=== PATIENT | female | born 2005 | race Caucasian/White ===

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

== ENCOUNTER 2023-02-01 21:30 | Outpatient (CLI) | payer OTHER, MEDICAID, SELFPAY ==
[2023-02-01 21:36] VITALS: BMI 22.1
[2023-02-01 21:46] VITALS: TEMP 36.7
[2023-02-01 21:47] VITALS: TEMP 36.7
[2023-02-01 21:48] VITALS: BP 106/57; PULSE 113
[2023-02-01] MEDS: ondansetron 2 mg/ML SDV 2 mL 4 MG IVP (22:05)
[2023-02-01] MEDS: lactated ringers 1,000 ML 999 ML IV (22:05)
[2023-02-01 22:11] VITALS: RESP 15
[2023-02-01 22:17] LABS: Basophils % 0.2 %; Eosinophils % 0.1 %; Hematocrit 40.1 % (37.0-47.0); Hemoglobin 13.3 g/dL (11.5-15.3); Lymphocytes # 0.4 10^3/uL (1.5-6.5); Mean Corpuscular HGB Conc 33.2 g/dL (30.0-36.0); Mean Corpuscular Hemoglobin 31.8 pg (28.0-34.0); Mean Corpuscular Volume 95.9 fl (81-99); Monocytes # 1.3 10^3/uL (0.2-0.9); Monocytes % 8.9 %; Neutrophils # 12.31 10^3/uL (1.8-8.0); Neutrophils % 86.5 %; Nucleated Red Blood Cells % 0 %; Platelet Count 231 10^3/cmm (130-400); Red Blood Count 4.18 10^6/uL (4.1-5.3); Red Cell Distribution Width 13.6 % (12.1-15.1); White Blood Count 14.2 10^3/uL (4.5-13.0)
[2023-02-01 22:25] LABS: Bilirubin Urine Neg (Negative); Blood Urine Neg (Negative); Glucose Urine UA Norm (Normal); Ketones Urine 2+ (Negative); Leukocyte Esterase Urine Negative (Negative); Nitrate Urine Negative (Negative); Protein Urine Neg (Negative); RBC Urine 0-4 /hpf (0-2); Specific Gravity, Urine 1.025 (1.005-1.030); Urine Appearance Clear (CLEAR); Urine Color Yellow (Yellow); Urobilinogen Urine Norm (Negative); pH Urine 5 (5-7)
[2023-02-01 22:26] LABS: Add Urine Culture? No; Bacteria Urine 4+ /hpf; Mucus Urine 4+ /hpf; Squamous Epithelial Cell Urine 15-25 /hpf (0-5); WBC Urine 40-55 /hpf (0-5)
[2023-02-01 22:59] VITALS: BP 101/59; PULSE 85
== END 2023-02-01 23:05 | disposition home or self-care (01) ==
LOC: OPOB 21:32 → OBGYN 21:33
PROVIDERS: Visit Provider Obstetrics & Gynecology
DX: O21.9 Vomiting of pregnancy, unspecified (principal); Z3A.00 Weeks of gestation of pregnancy not specified; R50.9 Fever, unspecified
CPT/HCPCS: 36415; 81001; 85025; 96374; 99211; J2405; J7120

== ENCOUNTER 2023-02-04 15:00 | Outpatient (CLI) | payer OTHER, MEDICAID, SELFPAY ==
[2023-02-04 15:45] VITALS: BMI 22.4
[2023-02-04 15:56] VITALS: BP 111/66; PULSE 76
[2023-02-04 16:10] VITALS: BP 110/62; PULSE 82
[2023-02-04 16:31] VITALS: BP 107/61; PULSE 82; RESP 17
[2023-02-04] MEDS: lactated ringers 1,000 ML 999 ML IV (16:36)
[2023-02-04] MEDS: ondansetron 4 MG Tablet PO (16:36)
[2023-02-04 16:51] VITALS: BP 117/62; PULSE 77
[2023-02-04 17:11] VITALS: BP 121/64; PULSE 74
[2023-02-04 17:31] VITALS: BP 122/60; PULSE 76
== END 2023-02-04 17:52 | disposition home or self-care (01) ==
LOC: OPOB 15:01 → OBGYN 15:01
PROVIDERS: Visit Provider Obstetrics & Gynecology
DX: O26.899 Other specified pregnancy related conditions, unspecified trimester (principal); Z3A.00 Weeks of gestation of pregnancy not specified; R11.0 Nausea; R19.7 Diarrhea, unspecified
CPT/HCPCS: 36415; 96374; 99211; J7120; Q0162

== ENCOUNTER → 2023-02-21 14:37 | Outpatient (BNVA) | payer OTHER, MEDICAID, SELFPAY | PROVIDERS: Visit Provider Obstetrics & Gynecology | DX: Z34.00 Encounter for supervision of normal first pregnancy, unspecified trimester (principal) | CPT/HCPCS: 82950; 84315; 85025; 87086 ==

== ENCOUNTER 2023-03-21 14:50 | Outpatient (CLI) | payer OTHER, MEDICAID, SELFPAY ==
[2023-03-21 15:00] VITALS: BMI 22.8
[2023-03-21 15:02] VITALS: BP 109/59; PULSE 68
--- NOTE | 2023-03-21 15:03 | US_ITS ---
WS: [id number] ULTRASOUND OB LIMITED TECHNIQUE: Limited ultrasound examination of the fetus. CLINICAL INFORMATION: 2 VESSEL CORD COMPARISON: December 27, 2022 FINDINGS: Single interuterine gestation. presentation is vertex Placental location is anterior. Placenta grade: 2 heart rate 150 BPM. HANNA 18.2 cm Anatomy: BDP: 8.6 cm = 34w6d 94th percentile HC: 31.4 cm = 35w2d 81 percentile AC: 25.7 cm = 29w6d 2nd percentile FEMUR LENGTH: 5.8 cm = 30w2d 2nd percentile Estimated weight: 1653 g; 3 lbs. 10 oz. EGA by ultrasound: 32w4d JOSE by ultrasound: 05/12/2023 Biophysical profile 8 out of 8. breathin movement: 2 tone: 2 Amniotic fluid: 2 US/US OB BPP wo NST 82138 IMPRESSION: 1. Biophysical profile 8 out of 8. 2. Abdominal circumference at the 2nd percentile for gestational age suspiciou s for growth restriction. Recommend follow-up UA Doppler to assess for pl acental insufficiency 3. Estimated weight: 1653 g; 3 lbs. 10 oz. (28th percentile)
[2023-03-21 15:22] VITALS: BP 101/59; PULSE 81
[2023-03-21 15:42] VITALS: BP 101/55; PULSE 73
[2023-03-21 16:40] VITALS: BP 101/55; PULSE 73
== END 2023-03-21 16:40 | disposition home or self-care (01) ==
LOC: OPOB 14:54 → OBGYN 14:59
PROVIDERS: Visit Provider Obstetrics & Gynecology
DX: Z36.4 Encounter for antenatal screening for fetal growth retardation (principal)
CPT/HCPCS: 59025; 76819; 84315; 87086; 99211

== ENCOUNTER 2023-03-28 13:45 | Outpatient (CLI) | payer OTHER, MEDICAID, SELFPAY ==
[2023-03-28 13:50] VITALS: BMI 23.1
[2023-03-28 13:56] VITALS: BP 109/66; PULSE 86
--- NOTE | 2023-03-28 13:58 | US_ITS ---
WS: [id number] BIOPHYSICAL PROFILE AND LIMITED OB. HISTORY: 2 VESSEL CORD, GROWTH MEASUREMENTS AND HANNA COMPARISON: 10/14/2022 Presentation: Cephalic. Cervix: Closed and normal length. Placenta: Anterior, no previa or abruption. Grade: 1 HEART: FHR of 133BPM. measurements: BPD = 8.4 cm = 33w4d; 46th percentile HC = 30.3 cm = 33w4d; 17th percentile AC = 29.5 cm = 33w3d; 49th percentile FL = 6.5 cm = 33w4d; 41st percentile HANNA: 8.8 centimeters; single deep vertical pocket 2.7 cm. EFW: 2218g; 57th percentile AGA by ultrasound: 33w4d JOSE by ultrasound: 05/12/2023 Measurements are internally concordant. head measurements are appropriate on today's study. Biophysical profile: Parameters are as follows: Breathin Movement: 2 Tone: 2 Fluid volume: 2 US/US OB lmt w/ BPP wo NST IMPRESSION: 1. Biophysical profile score: 8/8. 2. Single intrauterine gestation of 33w4d with an 05/12/2023. Appropriate growt h since the first trimester ultrasound. 3. No growth asymmetry or growth restriction noted on today's study.
[2023-03-28 14:16] VITALS: BP 115/73; PULSE 89
[2023-03-28 15:10] VITALS: BP 115/73; PULSE 89
== END 2023-03-28 15:10 | disposition home or self-care (01) ==
LOC: OPOB 13:52 → OBGYN 13:53
PROVIDERS: Absent Provider Obstetrics & Gynecology; Family Provider Obstetrics & Gynecology; Visit Provider Obstetrics & Gynecology
DX: Z36.89 Encounter for other specified antenatal screening (principal); Z36.4 Encounter for antenatal screening for fetal growth retardation; Z3A.34 34 weeks gestation of pregnancy
CPT/HCPCS: 59025; 76815; 76819; 99211

== ENCOUNTER 2023-04-04 15:25 | Outpatient (CLI) | payer OTHER, MEDICAID, SELFPAY ==
[2023-04-04 15:25] VITALS: BMI 23.8
[2023-04-04 15:29] VITALS: RESP 18
--- NOTE | 2023-04-04 15:29 | USR_ITS ---
PROCEDURE INFORMATION: Exam: US Biophysical Profile Without Non-Stress Test Exam date and time: 04/04/2023 4:20 PM Age: 18 years old Clinical indication: Other: 2v cord; ; Additional info: 2 vessel cord, growth scan, hanna TECHNIQUE: Imaging protocol: US biophysical profile without non-stress testing. COMPARISON: US OB lmt w/ BPP wo NST 03/28/2023 2:55 PM FINDINGS: heart rate: 129 bpm Amniotic fluid index: HANNA is 14.7 cm. BIOPHYSICAL PROFILE: breathing movement (BPP): 2 out of 2. body movement (BPP): 2 out of 2. tone (BPP): 2 out of 2. Amniotic fluid (BPP): 2 out of 2. US/US OB BPP wo NST [id number] IMPRESSION: Biophysical profile score is normal at 8/8.
[2023-04-04 15:32] VITALS: BP 115/61; PULSE 75
[2023-04-04 15:47] VITALS: BP 109/59; PULSE 77
[2023-04-04 16:02] VITALS: BP 111/60; PULSE 80
[2023-04-04 16:17] VITALS: BP 110/66; PULSE 86
[2023-04-04 16:32] VITALS: BP 106/61; PULSE 76
== END 2023-04-04 16:45 | disposition home or self-care (01) ==
LOC: OPOB 15:27 → OBGYN 15:28
PROVIDERS: Family Provider Obstetrics & Gynecology; Visit Provider Obstetrics & Gynecology
DX: Z36.9 Encounter for antenatal screening, unspecified (principal)
CPT/HCPCS: 36415; 59025; 76819; 85025

== ENCOUNTER 2023-04-14 11:10 | Outpatient (CLI) | payer OTHER, MEDICAID, SELFPAY ==
[2023-04-14 11:27] VITALS: RESP 16
--- NOTE | 2023-04-14 11:27 | US_ITS ---
WS: [id number] BIOPHYSICAL PROFILE AND LIMITED OB. HISTORY: 2 vessel cord, growth. COMPARISON: 04/04/2023, 10/14/2022, Presentation: Vertex. Cervix: Obscured by the head. Placenta: Anterior, no previa or abruption. Grade: 1 HEART: FHR of 150BPM. measurements: BPD = 9.0 cm = 36w3d; 73rd percentile HC = 32.6 cm = 36w6d; 41st percentile AC = 31.7 cm = 35w4d; 48th percentile FL = 6.8 cm = 35w1d; 23rd percentile EFW: 2746g; 59th percentile AGA by ultrasound: 36w0d JOSE by ultrasound: 05/12/2023 Biophysical profile: Parameters are as follows: Breathin Movement: 2 Tone: 2 Fluid volume: 2 Single vertical pocket of amniotic fluid 4.0 cm. US/US OB BPP wo NST [id number] IMPRESSION: 1. Biophysical profile score: 8/8. 2. Single intrauterine gestation of 36w0d with an EDC of 05/12/2023. Appropriate growth since the prior ultrasound of 04/14/2022.
[2023-04-14 11:28] VITALS: BMI 24.0
[2023-04-14 11:29] VITALS: BP 112/63; PULSE 85
[2023-04-14 11:49] VITALS: BP 113/70; PULSE 96
[2023-04-14 12:09] VITALS: BP 100/60; PULSE 91
[2023-04-14 12:29] VITALS: BP 103/61; PULSE 86
[2023-04-14 12:40] VITALS: BP 103/61; PULSE 86
== END 2023-04-14 12:40 | disposition home or self-care (01) ==
LOC: OPOB 11:15 → OBGYN 11:16
PROVIDERS: Family Provider Obstetrics & Gynecology; Visit Provider Obstetrics & Gynecology
DX: Z34.93 Encounter for supervision of normal pregnancy, unspecified, third trimester (principal); Z3A.36 36 weeks gestation of pregnancy
CPT/HCPCS: 59025; 76819; 99211

== ENCOUNTER 2023-04-18 13:39 | Outpatient (CLI) | payer OTHER, MEDICAID, SELFPAY ==
--- NOTE | 2023-04-18 13:49 | US_ITS ---
WS: [id number] BIOPHYSICAL PROFILE AND LIMITED OB. HISTORY: 2 vessel cord COMPARISON: 10/14/2022, 04/14/2023 Presentation: Vertex. Cervix: Obscured by the head. Placenta: Anterior, no previa or abruption. Grade: 2 HEART: FHR of 126BPM. measurements: BPD = 9.4 cm = 38w3d; 95th percentile HC = 33.4 cm = 38w1d; 60th percentile AC = 31.8 cm = 35w5d; 37th percentile FL = 6.9 cm = 35w3d; 28th percentile HANNA: 12.3 cm. EFW: 2870g; 58th percentile AGA by ultrasound: 37w0d JOSE by ultrasound: 05/09/2023 Measurements are internally concordant. Biophysical profile: Parameters are as follows: Breathin Movement: 2 Tone: 2 Fluid volume: 2 US/US OB lmt w/ BPP wo NST IMPRESSION: 1. Biophysical profile score: 8/8. 2. Single intrauterine gestation of 37w0d with an JOSE 05/09/2023. Appropriate g rowth since the first trimester ultrasound. No growth restriction.
[2023-04-18 14:09] VITALS: BP 109/68; PULSE 86
== END 2023-04-18 15:11 | disposition home or self-care (01) ==
LOC: OPOB 13:45 → OBGYN 14:07
PROVIDERS: Family Provider Obstetrics & Gynecology
DX: Z36.4 Encounter for antenatal screening for fetal growth retardation (principal); Z3A.37 37 weeks gestation of pregnancy
CPT/HCPCS: 59025; 76815; 76819; 84315; 87081

== ENCOUNTER → 2023-04-24 13:20 | Outpatient (BNVA) | payer OTHER, MEDICAID, SELFPAY | PROVIDERS: Family Provider Obstetrics & Gynecology; Visit Provider Obstetrics & Gynecology | DX: Z34.90 Encounter for supervision of normal pregnancy, unspecified, unspecified trimester (principal) | CPT/HCPCS: 84315; 87086 ==

== ENCOUNTER 2023-04-25 13:25 | Outpatient (CLI) | payer OTHER, MEDICAID, SELFPAY ==
[2023-04-25 13:25] VITALS: BMI 24.0
[2023-04-25 13:33] VITALS: RESP 18
--- NOTE | 2023-04-25 13:33 | US_ITS ---
WS: [id number] BIOPHYSICAL PROFILE AMNIOTIC FLUID HISTORY: 2 vessel cord COMPARISON: 04/24/2023, 04/18/2023 position: Vertex. Cardiac activity: 133 bpm. Cervix: Obscured by the head. Placenta: Anterior, no previa or abruption. Placenta grade: 2 stomach is becoming distended with fluid. This may be due to the late gestational age. This can be followed up to ascertain normal emptying of the stomach. No small bowel obstruction is evident. measurements: BPD = 9.4 cm = 38w3d; 87th percentile HC = 33.7 cm = 38w4d; 53rd percentile AC = 31.4 cm = 35w2d; 10th percentile FL = 7.4 cm = 37w5d; 55th percentile HANNA: 10.8 centimeters EFW: 2993g; 53rd percentile AGA by ultrasound: 37w4d JOSE by ultrasound: 05/12/2023 Biophysical profile: Parameters are as follows: Breathin Movement: 2 Tone: 2 Fluid volume: 2 US/US OB BPP wo NST [id number] IMPRESSION: 1. Biophysical profile score: 8/8. 2. Single intrauterine gestation of 37w4d with and EDC of 05/12/2023. Appropria te growth since the prior ultrasound. 3. No growth restriction. 4. Grade 2 placenta.
[2023-04-25 14:44] VITALS: BP 117/73; PULSE 90
[2023-04-25 14:45] VITALS: BP 117/73; PULSE 90
== END 2023-04-25 14:45 | disposition home or self-care (01) ==
LOC: OPOB 13:28 → OBGYN 13:30
PROVIDERS: Family Provider Obstetrics & Gynecology; Visit Provider Obstetrics & Gynecology
DX: O09.899 Supervision of other high risk pregnancies, unspecified trimester (principal); Q27.0 Congenital absence and hypoplasia of umbilical artery; Z3A.37 37 weeks gestation of pregnancy
CPT/HCPCS: 59025; 76819; 99211

== ENCOUNTER 2023-05-02 13:07 | Outpatient (CLI) | payer OTHER, MEDICAID, SELFPAY ==
[2023-05-02 13:19] VITALS: BP 112/67; PULSE 82
[2023-05-02 13:22] VITALS: RESP 17; TEMP 36.8
[2023-05-02 13:23] VITALS: BMI 24.3
[2023-05-02 13:34] VITALS: BP 114/69; PULSE 83
== END 2023-05-02 14:25 | disposition home or self-care (01) ==
LOC: OPOB 13:10 → OBGYN 13:11
PROVIDERS: Family Provider Obstetrics & Gynecology; Visit Provider Obstetrics & Gynecology
DX: Z36.89 Encounter for other specified antenatal screening (principal)
CPT/HCPCS: 59025; 84315; 99211

== ENCOUNTER 2023-05-02 15:04 | Outpatient (CLI) | payer OTHER, MEDICAID, SELFPAY ==
--- NOTE | 2023-05-02 15:13 | US_ITS ---
WS: [id number] BIOPHYSICAL PROFILE AND LIMITED OB. HISTORY: with GROWTH SCAN, 2 vessel cord COMPARISON: 12/27/2021, 04/25/2023 Presentation: Vertex. Cervix: Obscured by the head. No cervical insufficiency is appreciated. Placenta: Anterior, no previa or abruption. Grade: 2 HEART: FHR of 150BPM. measurements: BPD = 9.2 cm = 37w2d; 45th percentile HC = 33.1 cm = 37w5d; 17th percentile AC = 33.6 cm = 37w4d; 40th percentile FL = 7.5 cm = 38w3d; 51st percentile Visually low normal amniotic fluid. EFW: 3292g; 67th percentile AGA by ultrasound: 37w5d JOSE by ultrasound: 05/18/2023 Biophysical profile: Parameters are as follows: Breathin Movement: 2 Tone: 2 Fluid volume: 2 Single vertical pocket of amniotic fluid 3.4 cm. US/US OB BPP wo NST [id number] IMPRESSION: 1. Biophysical profile score: 8/8. 2. Single intrauterine gestation of 37w5d with an 05/18/2023. Appropriate growt h since the first trimester ultrasound. Also appropriate growth since the most recent examination. 3. Anterior placenta, grade 2. 4. Single vertical pocket of amniotic fluid is 3.4 cm. 5. No growth asymmetry or restriction.
[2023-05-02 15:15] VITALS: BMI 24.3
== END 2023-05-02 17:40 | disposition home or self-care (01) ==
LOC: OPOB 15:05 → OBGYN 15:06
PROVIDERS: Family Provider Obstetrics & Gynecology; Visit Provider Obstetrics & Gynecology
DX: Z36.4 Encounter for antenatal screening for fetal growth retardation (principal); Z3A.37 37 weeks gestation of pregnancy
CPT/HCPCS: 76819; 99211

== ENCOUNTER 2023-05-09 14:55 | Outpatient (CLI) | payer OTHER, MEDICAID, SELFPAY ==
--- NOTE | 2023-05-09 | USR_ITS ---
PROCEDURE INFORMATION: Exam: US Biophysical Profile Without Non-Stress Test Exam date and time: 05/09/2023 4:34 PM Age: 18 years old Clinical indication: Screening exam; Encounter for screening of mother; Second trimester (14 weeks 0 days to 27 weeks 6 days); Additional info: 2 vessel cord TECHNIQUE: Imaging protocol: US biophysical profile without non-stress testing. COMPARISON: US OB BPP wo NST [id number] 05/02/2023 5:07 PM FINDINGS: Gestation: There is a single viable intrauterine gestation. Estimated gestational age 37 weeks 6 days heart rate: 129 bpm. heart rate 129 bpm Amniotic fluid index: HANNA is 9.7 cm. HANNA 9.7 cm. BIOPHYSICAL PROFILE: breathing movement (BPP): 2 out of 2. body movement (BPP): 2 out of 2. tone (BPP): 2 out of 2. Amniotic fluid (BPP): 2 out of 2. BIOMETRY: Estimated weight: Estimated weight 3590 g, 71st percentile Umbilical cord insertion site into the abdomen: 2 vessel cord. Other findings: position is vertex. BPD 38 weeks 3 days, 59 percentile; HC 37 weeks 6 days, 11th percentile; AC 39 weeks 5 days, 78 percentile; FL 37 weeks 0 day. US/US OB BPP wo NST [id number] IMPRESSION: Single viable intrauterine gestation at 37 weeks 6 days.
[2023-05-09 14:55] VITALS: BMI 24.7
[2023-05-09 15:30] VITALS: BP 114/72; PULSE 82
[2023-05-09 15:50] VITALS: BP 113/72; PULSE 82
== END 2023-05-09 17:07 | disposition home or self-care (01) ==
LOC: OPOB 15:00 → OBGYN 15:09
PROVIDERS: Family Provider Obstetrics & Gynecology; Visit Provider Obstetrics & Gynecology
DX: Z36.4 Encounter for antenatal screening for fetal growth retardation (principal)
CPT/HCPCS: 59025; 76815; 76819; 84315; 87086

== ENCOUNTER → 2023-05-12 14:05 | Outpatient (BNVA) | payer OTHER, MEDICAID, SELFPAY | PROVIDERS: Family Provider Obstetrics & Gynecology; Visit Provider Obstetrics & Gynecology | DX: Z34.00 Encounter for supervision of normal first pregnancy, unspecified trimester (principal) | CPT/HCPCS: 81000 ==

== ENCOUNTER 2023-05-15 12:01 | Inpatient (IN) | payer OTHER, MEDICAID, SELFPAY ==
[2023-05-15] VITALS (21 sets, daily range): BP systolic 105–124; BP diastolic 63–82; PULSE 74–100; RESP 16; TEMP 36.1–36.2; BMI 25.2
[2023-05-15 12:56] LABS: Basophils % 0.1 %; Eosinophils # 0.1 10^3/uL (0.0-0.8); Eosinophils % 0.6 %; Hematocrit 36.6 % (37.0-47.0); Hemoglobin 12.5 g/dL (11.5-15.3); Lymphocytes # 1.5 10^3/uL (1.5-6.5); Lymphocytes % 14.2 %; Mean Corpuscular HGB Conc 34.2 g/dL (30.0-36.0); Mean Corpuscular Hemoglobin 32.5 pg (28.0-34.0); Mean Corpuscular Volume 95.1 fl (81-99); Mean Platelet Volume 9.6 fL (7.4-10.4); Monocytes # 1.3 10^3/uL (0.2-0.9); Monocytes % 11.8 %; Neutrophils # 7.82 10^3/uL (1.8-8.0); Neutrophils % 72.5 %; Nucleated Red Blood Cells % 0 %; Platelet Count 199 10^3/cmm (130-400); Red Blood Count 3.85 10^6/uL (4.1-5.3); Red Cell Distribution Width 13.7 % (12.1-15.1); White Blood Count 10.8 10^3/uL (4.5-13.0)
[2023-05-15] MEDS: miSOPROStol 100 mcg tablet 25 MCG VAGINAL ×3 (13:19→21:56)
--- NOTE | 2023-05-15 16:36 | PM.OPHPUD ---
Labor & Delivery H&P Update Date of Procedure: May 15, 2023 Date H&P Performed: 05/12/23 H&P update information: I have reviewed H&P completed within last 30 days, I have examined patient prior to procedure and No changes to prior documentation Admission Diagnosis: Related Problem List Diagnoses (1) Two vessel cord: (2) Maternal varicella, non-immune: (3) Supervision of normal first :
[2023-05-16] VITALS (155 sets, daily range): BP systolic 86–128; BP diastolic 45–104; PULSE 64–108; RESP 15–16; TEMP 36.1–36.2; O2SAT 93–100
[2023-05-16] MEDS: lactated ringers 1,000 ML 999 ML IV ×3 (02:14→07:19)
[2023-05-16] MEDS: fentaNYL 50 mcg/mL INJ 2mL IVP ×2 (04:26→05:28)
[2023-05-16] MEDS: ondansetron 2 mg/ML SDV 2 mL 4 MG IVP (05:27)
--- NOTE | 2023-05-16 05:46 | ANES.PREANE2 ---
Pre-Anesthetic Assessment Height/Weight: Height 1.83 m Weight 84.368 kg Temp Pulse Resp BP O2 Del Method 97.2 F L 93 16 112/84 Room Air 05/16/23 01:09 05/16/23 05:03 05/16/23 04:26 05/16/23 05:03 05/16/23 03:17 Preop Diagnosis: labor pain epidural Familial anesthetic complications: none Was Beta Henrietta taken within 24 hours: N/A Was Clonidine taken within 24 hours: N/A Social No alcohol and No tobacco Exam alert, oriented x 3, clear to auscultation bilaterally and regular rate & rhythm Airway Submandibular: within normal limits Cervical ROM: within normal limits Mallampati: Class II Dentition: full Pulmonary None reported CV/HEM None reported None reported Hepatic None reported GI Gastroesophageal Reflux Disease Metabolic None reported Musc/skel None reported Neuropsych None reported Anesthetic Plan ASA status: 2 Anesthesia: Regional (specify below) Risk of > 500 ml blood loss (7ml/kg in children): No Medications/Allergies Home Medications Medication Instructions Recorded Confirmed Last Taken Type prenat.vits,ana,pdp-lbee-fzafd 1 tab PO DAILY 10/11/22 05/12/23 04/17/23 00:00 History breast pump #1 ea 05/09/23 05/12/23 Unknown Rx Allergies Allergy/AdvReac Type Severity Reaction Status Date / Time No Known Allergies Allergy Verified 05/12/23 14:00 Current Medications Generic Name Dose Route Start Last Admin Trade Name Freq PRN Reason Stop Dose Admin Fentanyl 25 - 100 mcg 05/15/23 12:46 05/16/23 05:28 Fentanyl 50 Mcg/Ml Inj 2ml IVP 50 mcg Q1H PRN Administration SEVERE PAIN Lactated Ringer's 1,000 mls @ 999 mls/hr 05/15/23 12:44 05/16/23 02:14 Lactated Ringers IV 999 mls/hr .Q1H1M PRN Administration Per L&D Rescitation Protocol Ondansetron HCl 4 mg 05/15/23 12:44 05/16/23 05:27 Ondansetron 2 Mg/Ml Sdv 2 Ml IVP 4 mg Q4H PRN Administration NAUSEA AND VOMITING PFSH Anesthesia Medical History No pertinent past medical history neghx: htn,dm,thyroid,dtv/pe PCP: None Surgical History No pertinent past surgical history Family History Mother Breast cancer dx age 50's Grandfather Heart disease Maternal Family/Other Stroke Paternal Aunt Denies family history of Colon cancer Ovarian cancer Diabetes Family history of thyroid problem Hypertension Uterine cancer Female Reproductive History : 1 Data Anesthesia 05/15/23 12:30 Short CBC 05/15/23 Range/Units 12:30 WBC 10.8 (4.5-13.0) 10^3/uL Hgb 12.5 (11.5-15.3) g/dL Hct 36.6 L (37.0-47.0) % MCV 95.1 (81-99) fl Plt Count 199 (130-400) 10^3/cmm Neut % (Auto) 72.5 % Neut # (Auto) 7.82 (1.8-8.0) 10^3/uL Cardiac Studies: No Data to Display
--- NOTE | 2023-05-16 06:13 | P.ANES_ITS ---
Anesthesia Procedures Procedure/Date: 05/16/23 epidural Procedure Narrative: epidural complete, bolus given, epidural pump initiated with [employer]IAN education given, vitals taken during procedure and satisfactory throughout, patient admits to decrease pain, report of procedure to OB RN Epidural: Time Out Performed: Yes Consents Signed: Procedure Consent Consent: requested by attending/covering physician, from patient, risks and benefits reviewed and patient agrees to proceed Lumbar Level: L3-L4 Epidural position: sitting Epidural procedure: sterile prep of area, 1% lidocaine to numb the area (3 mL), 18 g needle, negative for paresthesia passed, neg for paresthesia, test dose given, 1.5% xylocaine 1:200k epi (5 mL), 0.2% Ropivacaine bolus ml (5 mL), placed PCEA, no systemic response, sterile dressing applied, L.U.D. no apparent complications and 0.2% Ropiavacaine @ mls/hr (13 mL/hr)
[2023-05-16] MEDS: ePHEDrine 50 mg/mL Inj 10 MG IVP ×2 (07:11→07:19)
[2023-05-16] MEDS: dextrose 5%-lactated ringers 1,000 ML 999 ML IV (10:39)
[2023-05-16] MEDS: dextrose 5%-lactated ringers 1,000 ML 125 ML IV (15:02)
[2023-05-16] MEDS: oxytocin 30 UNIT/500 ML BAG 600 UNIT IV (20:40)
--- NOTE | 2023-05-16 21:06 | PM.DELIVERY ---
Delivery Note: Date of delivery: May 16, 2023 Pre-delivery diagnoses: iup@40w4d, 2 vessel cord, varicella non-immune Post-delivery diagnoses: same-delivered Procedure: Delivering Physician: Jaky Estimated blood loss (mL): 20 Findings: term female in the ZAK presentation Pre-Delivery Course: The patient was admitted for induction at term. She received 3 doses of cytotec and was kurt regularly. She received an epidural for pain management. low dose pitocin was started when the contractions started to space out and she had made no cervical change. AROM was performed at 5/100/0 and she rapidly progressed to complete cervical dilation. The pitocin was stopped. Delivery: The patient had complete cervical dilation and began to push. The head delivered in the ZAK position over an intact perineum under epidural anesthesia. The nose and mouth were bulb suctioned. The shoulders and body delivered atraumatically. The baby was placed onto the mother's abdomen. The cord was clamped and cut. Cord blood was obtained. The placenta delivered spontaneously. It was inspected and found to be intact. Inspection of the perineum revealed a second-degree perineal laceration. It was repaired paired in the usual fashion. Estimated blood loss 20 mL. Apgars on baby were 8 at 1 minute and 8 at 5 minutes. Weight of baby is 7 pounds 7 ounces. Mother and baby were stable post delivery. History History History 1 Term Miscarriages/Ectopic Living Children A&P Assessment and plan (1) Two vessel cord: (2) Maternal varicella, non-immune: (3) Supervision of normal first : Coding Level of Care Code Acute Code for Chg Fwd Diagnoses Two vessel cord Q27.0 Maternal varicella, non-immune O09.899; Z28.39 Supervision of normal first Z34.00
[2023-05-17] VITALS (8 sets, daily range): BP systolic 105–128; BP diastolic 56–79; PULSE 76–96; RESP 15–16; TEMP 36.6–36.8; O2SAT 98–100
[2023-05-17] MEDS: lidocaine 2% INJ 20 mL INJECTION (00:25)
[2023-05-17] MEDS: benzocaine-menthol 78 gm Canister 1 SPRAY TOPICAL (00:45)
[2023-05-17] MEDS: lanolin oint 7 gm 1 APPLIC TOPICAL (00:45)
--- NOTE | 2023-05-17 08:26 | ANE.PACU2 ---
Inpatient post-anesthesia follow up: Airway intact: Yes Vital signs: Temperature 98.0 F Pulse Rate 76 Respiratory Rate 15 Blood Pressure 128/79 Pulse Oximetry 98 Oxygen Delivery Me thod Room Air Oxygen Flow Rate Fraction of Inspir ed Oxygen Hydration adequate: Yes Nausea and vomiting: Yes Pain level: 1 Mental status: Baseline
[2023-05-17] MEDS: prenatal vitamin Capsule 1 CAP PO (09:26)
[2023-05-17] MEDS: docusate sodium 100 mg Capsule PO (09:26)
[2023-05-17] MEDS: ibuprofen 800 mg tablet PO ×2 (09:26→16:49)
[2023-05-17 09:47] LABS: Hematocrit 37.5 % (37.0-47.0); Hemoglobin 12.6 g/dL (11.5-15.3); Mean Corpuscular HGB Conc 33.6 g/dL (30.0-36.0); Mean Corpuscular Hemoglobin 32.1 pg (28.0-34.0); Mean Corpuscular Volume 95.4 fl (81-99); Mean Platelet Volume 9.6 fL (7.4-10.4); Platelet Count 199 10^3/cmm (130-400); Red Blood Count 3.93 10^6/uL (4.1-5.3); Red Cell Distribution Width 13.9 % (12.1-15.1); White Blood Count 16.1 10^3/uL (4.5-13.0)
--- NOTE | 2023-05-17 11:52 | PM.PN ---
Subjective Subjective: The patient is doing well. No concerns Vitals/I&O/Wt Last Vital Signs Temp 98.0 F 05/17/23 06:48 Pulse 76 05/17/23 06:48 Resp 15 05/17/23 06:48 BP 128/79 05/17/23 06:48 Pulse Ox 98 05/17/23 06:48 O2 Del Method Room Air 05/17/23 06:48 05/16/23 05/17/23 05/17/23 22:59 06:59 14:59 Intake Total 2815.967 / 3865.967 Output Total 400 / 400 1300 / 1700 Balance 2415.967 / 3465.967 -1300 / 2165.967 Weight last 48 hrs Weight 186 lb Physical Exam Narrative: The patient has no concerns today. She is breast feeding, tolerating a regular diet and ambulating without difficulty. Const: COMMON NORMALS: no acute distress, average body habitus, patient oriented x3, no limitations, healthy appearing, alert and well nourished GENERAL APPEARANCE: cooperative, comfortable, well kempt and well developed ORIENTATION/CONSCIOUSNESS: Yes awake, Yes oriented to person, Yes oriented to place and Yes oriented to time Resp: COMMON NORMALS: normal respiratory effort GI: COMMON NORMALS: Soft to palpation and non-tender PALPATION: Yes Soft to palpation Extremity: COMMON NORMALS: no calf tenderness Neuro: COMMON NORMALS: patient oriented x3 SENSORIUM/ORIENTATION: Yes alert, Yes oriented to person, Yes oriented to place and Yes oriented to time Psych: APPEARANCE: Yes well kempt Urinary Catheter Management: Petersen Latex: Cath Placed During This Visit: yes, but has since been removed by the nurse Reason for Continuing Indwelling Catheter: Decision to DC Catheter Urinary Catheter Date of Insertion: 05/16/23 Urinary Catheter Time of Insertion: 09:05 Date Urinary Catheter Removed: 05/16/23 Time Urinary Catheter Discontinued: 19:25 Data 05/17/23 09:28 Attestations Medical Necessity Statement*: The patient had a vaginal delivery. She would like to stay two midnights. Coding Level of Care Code Acute Code for Chg Fwd Diagnoses
[2023-05-18 04:23] VITALS: BP 114/74; PULSE 85; RESP 16; TEMP 36.8; O2SAT 98
[2023-05-18] MEDS: docusate sodium 100 mg Capsule PO (08:53)
[2023-05-18] MEDS: ibuprofen 800 mg tablet PO (08:53)
[2023-05-18] MEDS: prenatal vitamin Capsule 1 CAP PO (08:53)
--- NOTE | 2023-05-18 11:21 | PM.DCS ---
Discharge Providers Date of Admission: 05/15/23 12:01 Date of Discharge: May 18, 2023 Attending Provider at Admission: Carmella Starkey MD Attending Provider at Discharge: Carmella Starkey MD Diagnoses at Discharge Discharge Diagnosis (1) Two vessel cord: Status: Acute (2) Maternal varicella, non-immune: Status: Acute (3) Supervision of normal first : Status: Acute Reason for Visit Reason for Visit: IOL Hospital Course Hospital Course The patient was admitted for induction of labor at term. She had spontaneous delivery of a term female . She did well and was ready for discharge on day #2. The varicella vaccine isn't available at the hospital. She has been instructed to to get her vaccine from the pharmacy. Physical Exam Narrative: The patient is doing well today. No concerns Const: COMMON NORMALS: no acute distress, average body habitus, patient oriented x3, no limitations, healthy appearing, alert and well nourished GENERAL APPEARANCE: cooperative, comfortable, well kempt and well developed ORIENTATION/CONSCIOUSNESS: Yes awake, Yes oriented to person, Yes oriented to place and Yes oriented to time Resp: COMMON NORMALS: normal respiratory effort EFFORT & INSPECTION: Yes able to speak in complete sentences GI: COMMON NORMALS: Soft to palpation and non-tender PALPATION: Yes Soft to palpation Extremity: COMMON NORMALS: no calf tenderness Neuro: COMMON NORMALS: patient oriented x3 SENSORIUM/ORIENTATION: Yes alert, Yes oriented to person, Yes oriented to place and Yes oriented to time Psych: COMMON NORMALS: mental status grossly normal, Normal thought process present, cooperative, normal affect and speech normal APPEARANCE: Yes well kempt SPEECH: Yes normal speech THOUGHT PROCESS: Normal thought process present Urinary Catheter Management: Petersen Latex: Cath Placed During This Visit: yes, but has since been removed by the nurse Reason for Continuing Indwelling Catheter: Decision to DC Catheter Urinary Catheter Date of Insertion: 05/16/23 Urinary Catheter Time of Insertion: 09:05 Date Urinary Catheter Removed: 05/16/23 Time Urinary Catheter Discontinued: 19:25 Discharge Data Studies Completed and Pending Laboratory Results WBC 16.1 10^3/uL (4.5-13.0) H 05/17/23 09:28 RBC 3.93 10^6/uL (4.1-5.3) L 05/17/23 09:28 Hgb 12.6 g/dL (11.5-15.3) 05/17/23 09: Hct 37.5 % (37.0-47.0) 05/17/23 09: MCV 95.4 fl (81-99) 05/17/23 09:28 MCH 32.1 pg (28.0-34.0) 05/17/23 09: MCHC 33.6 g/dL (30.0-36.0) 05/17/23 09: RDW 13.9 % (12.1-15.1) 05/17/23 09: Plt Count 199 10^3/cmm (130-400) 05/17/23 09: MPV 9.6 fL (7.4-10.4) 05/17/23 09:28 Neut % (Auto) 72.5 % 05/15/23 12:30 Lymph % (Auto) 14.2 % 05/15/23 12:30 [place] % (Auto) 11.8 % 05/15/23 12:30 Eos % (Auto) 0.6 % 05/15/23 12:30 Baso % (Auto) 0.1 % 05/15/23 12:30 Neut # (Auto) 7.82 10^3/uL (1.8-8.0) 05/15/23 12:30 Lymph # (Auto) 1.5 10^3/uL (1.5-6.5) 05/15/23 12:30 [place] # (Auto) 1.3 10^3/uL (0.2-0.9) H 05/15/23 12:30 Eos # (Auto) 0.1 10^3/uL (0.0-0.8) 05/15/23 12:30 Baso # (Auto) 0.0 10^3/uL (0.0-0.1) 05/15/23 12:30 Nucleated RBC % (auto) 0 % 05/15/23 12: Nucleated RBCs # 0.0 /100WBC 05/15/23 12:30 Vitals Last Vital Signs Temp 98.2 F 05/18/23 04:23 Pulse 85 05/18/23 04:23 Resp 16 05/18/23 04:23 BP 114/74 05/18/23 04:23 Pulse Ox 98 05/18/23 04:23 O2 Del Method Room Air 05/18/23 04:23 Discharge Plan Discharge Patient Disposition: Home Condition: Stable Prescriptions: Continued prenat.vits,ana,rzm-mnae-wciss Tablet 1 tab PO DAILY (DME) breast pump Device See Rx Instructions .Route Qty: 1 0RF Rx Instructions: As directed Discharge Orders: Discharge Order (Routine); Ordered 05/18/23 Ordered By: Carmella Starkey Patient Instructions: Opioid Safety Discharge Attestations Time Spent in Discharge Care*: less than 30 min Quality Metrics Clinical Quality Measures [ No reported AMI, CVA or VTE this stay] Coding Level of Care Code Acute Code for Chg Fwd Diagnoses Two vessel cord Q27.0 Maternal varicella, non-immune O09.899; Z28.39 Supervision of normal first Z34.00
[2023-05-18 15:20] VITALS: BP 122/75; PULSE 82; RESP 15; TEMP 37.1
== END 2023-05-18 15:45 | disposition home or self-care (01) | DRG 807 ==
LOC: OPOB 13:16 → OBGYN 13:16
PROVIDERS: Admitting Provider Obstetrics & Gynecology; Family Provider Obstetrics & Gynecology; Visit Provider Obstetrics & Gynecology
DX: O48.0 Post-term pregnancy (principal); Z37.0 Single live birth; O70.1 Second degree perineal laceration during delivery; Z3A.40 40 weeks gestation of pregnancy; O69.89X0 Labor and delivery complicated by other cord complications, not applicable or unspecified
CPT/HCPCS: 36415; 51702; 59025; 59409; 85025; 85027; 96374; 96376; 99211; J2405; J2590; J2795; J3010; J7040; J7120; J7121

== ENCOUNTER 2025-04-20 17:17 | Emergency (ER) | payer MEDICAID, SELFPAY ==
[2025-04-20 17:22] VITALS: BP 111/71; PULSE 66; RESP 17; TEMP 36.6; O2SAT 99; BMI 20.3
--- NOTE | 2025-04-20 17:25 | USR_ITS ---
PROCEDURE INFORMATION: Exam: US , Transvaginal Exam date and time: 04/20/2025 5:35 PM Age: 20 years old Clinical indication: Lmp or gestational age (in weeks): 03/09/2025; Antepartum complications; Other: Spotting; ; Additional info: Threatened ob LABS AND CLINICAL REPORTS: Last menstrual period start date: 03/09/2025 Gestational age (Established): 6 w 0 d Estimated due date (Established): 12/14/2025 TECHNIQUE: Imaging protocol: Real-time transvaginal obstetrical ultrasound of the maternal pelvis with image documentation. Transvaginal imaging was used for better evaluation of the fetus, adnexa, and/or cervix. COMPARISON: US OB BPP wo NST [id number] 05/09/2023 4:34 PM FINDINGS: Gestation: Yolk sac is visualized. Yolk sac measures 2.8 mm. heart rate: 117 bpm BIOMETRY: Gestational age (AUA): 6 week 5 day Estimated due date (AUA): 12/09/2025 [facility] rump length (CRL): 0.75 cm 6 week 5 day MATERNAL: Uterus: Uterus measures 5.9 x 6.8 x 8.4 cm. US/US OB <= 14 weeks fetus [id number] IMPRESSION: Single live intrauterine of approximately 6 weeks 5 days gestational age.
--- NOTE | 2025-04-20 19:17 | ED_ITS ---
HPI - Female Genitourinary 2 General: Chief complaint: Urogenital-Female Stated complaint: 6 wks preg spotting blood Time Seen by Provider: 04/20/25 18:54 Source: patient Mode of arrival: ambulatory Limitations: no limitations History of Present Illness: 20-year-old female is roughly 6 weeks pr egnant states she has been having some slight vaginal spotting denies any heavy bleeding denies passing clots she had some mild cramps as well sure make sure baby was okay denies any pain currently she denies any fever denies any dysuria denies any vaginal discharge Associated symptoms: Deny abdominal pain, headache(s) or nausea Date of Last Menstrual Period: 03/04/25 Related Data Home Medications ?Medication ?Instructions ?Recorded ?Confirmed prenat.vits,ana,[id number] 1 tab PO DAILY 10/11/22 07/06/24 Previous Rx's ?Medication ?Instructions ?Recorded breast pump #1 ea 05/09/23 Allergies Allergy/AdvReac Type Severity Reaction Status Date / Time No Known Allergies Allergy Verified 04/20/25 17:26 Review of Systems 2 Const: Denies: fever(s), chills, body aches or change in appetite ENMT: Denies: throat pain or dental pain Card: Denies: chest pain Resp: Denies: dyspnea GI: Denies: abdominal pain, nausea, vomiting or diarrhea : Reports: vaginal bleeding; Denies: dysuria Musc: Denies: neck pain or back pain Skin/Breast: Denies: rash Neuro: Denies: headache(s) PFSH ED 2 PFSH: Medical History Two vessel cord Maternal varicella, non-immune No pertinent past medical history neghx: htn,dm,thyroid,dtv/pe PCP: None Surgical History No pertinent past surgical history Family History Mother Breast cancer dx age 50's Grandfather Heart disease Maternal Family/Other Stroke Paternal Aunt Denies family history of Colon cancer Ovarian cancer Diabetes Family history of thyroid problem Hypertension Uterine cancer Female Reproductive History: Date of last menstrual period: 03/04/25 Physical Exam 2 Const: COMMON NORMALS: no acute distress, patient oriented x3 and healthy appearing HENMT: COMMON NORMALS: normocephalic and atraumatic HEAD & SCALP: n ormocephalic and atraumatic Eye: COMMON NORMALS: conjunctivae normal CONJUNCTIVA: Yes conjunctivae normal Neck/C-Spine: COMMON NORMALS: full ROM and supple Chest: COMMONS NORMALS: normal inspection of the chest Resp: COMMON NORMALS: normal respiratory effort Cardio: COMMON NORMALS: regular rate RATE: regular rate GI: COMMON NORMALS: Normal to inspection, nondistended, normoactive bowel sounds present, Soft to palpation, non-tender and no masses PALPATION: Yes Soft to palpation Extremity: COMMON NORMALS: normal to inspection and full ROM Neuro: COMMON NORMALS: patient oriented x3, moves all extremities and no focal motor deficits Psych: COMMON NORMALS: mental status grossly normal, Normal thought process present and cooperative THOUGHT PROCESS: Normal thought process present Skin: COMMON NORMALS: no rashes or lesions noted and no wounds GENERAL SKIN EXAM: no rashes or lesions noted Course 2 Vital Signs: Vital signs: Vital Signs Temperature 97.8 F 04/20/25 17:22 Pulse Rate 66 04/20/25 17:22 Respiratory Rate 17 04/20/25 17:22 Blood Pressure 111/71 04/20/25 17:22 Pulse Oximetry 99 04/20/25 17:22 Oxygen Delivery Me thod Room Air 04/20/25 17:22 MDM - Female Medical Decision Making Patient presents here with slight vaginal bleeding threatened miscarriage ultrasound showed an IUP her abdominal exam is benign she is stable for discharge follow-up with her OB return if worsening. Medical Records I reviewed the patient's medical records. Lab Data I reviewed the patient's lab results. 04/20/25 18:39 Radiology Impressions Ultrasound 04/20/25 17:25 IMPRESSION: Single live intrauterine of approximately 6 weeks 5 days gestational age. Laboratory Results WBC 8.87 10^3/uL (3.29-11.43) 04/20/25 18:39 RBC 4.33 10^6/uL (3.85-5.65) 04/20/25 18:39 Hgb 13.20 g/dL (11.27-16.99) 04/20/25 18:39 Hct 40.3 % (36-47) 04/20/25 18:39 MCV 93.1 fl (85-98) 04/20/25 18:39 MCH 30.5 pg (27-33) 04/20/25 18:39 MCHC 32.8 g/dL (30-55) 04/20/25 18:39 RDW 12.5 % (12.1-15.1) 04/20/25 18:39 Plt Count 254 10^3/cmm (157-399) 04/20/25 18:39 MPV 8.8 fL (7.4-10.4) 04/20/25 18:39 Neut % (Auto) 56.1 % 04/20/25 18:39 Lymph % (Auto) 30.8 % 04/20/25 18:39 [place] % (Auto) 12.1 % 04/20/25 18:39 Eos % (Auto) 0.6 % 04/20/25 18:39 Baso % (Auto) 0.2 % 04/20/25 18:39 Neut # (Auto) 4.98 10^3/uL (1.8-7.7) 04/20/25 18:39 Lymph # (Auto) 2.7 10^3/uL (0.8-4.8) 04/20/25 18:39 [place] # (Auto) 1.1 10^3/uL (0.2-0.9) H 04/20/25 18:39 Eos # (Auto) 0.1 10^3/uL (0.0-0.8) 04/20/25 18:39 Baso # (Auto) 0.0 10^3/uL (0.0-0.1) 04/20/25 18:39 Nucleated RBC % (auto) 0 % 04/20/25 18:39 Nucleated RBCs # 0.0 /100WBC 04/20/25 18:39 All radiology interpretation(s) finalized by discharge Discharge Plan Discharge Patient Disposition: Home Clinical Impression: Threatened miscarriage Condition: Stable Prescriptions: No Action prenat.vits,ana,[id number] Tablet 1 tab PO DAILY (DME) breast pump Device See Rx Instructions .Route Qty: 1 0RF Rx Instructions: As directed Discharge Orders: Discharge ED (Routine); Ordered 04/20/25 Ordered By: Korby Catalina Discharge Diet: Advance as tolerated Discharge Activity: Resume usual activity Patient Instructions: Threatened Miscarriage (ED) Print Language: Malaysian Coding Level of Care Code ED Fuse Assembler for Gumaro Gaines
[2025-04-20 19:20] VITALS: BP 104/73; O2SAT 98
[2025-04-20 19:36] VITALS: BP 104/73; PULSE 75; RESP 16; O2SAT 98
== END 2025-04-20 19:37 | disposition home or self-care (01) ==
PROVIDERS: Emergency Provider Emergency Medicine
DX: O20.0 Threatened abortion (principal); Z3A.01 Less than 8 weeks gestation of pregnancy
CPT/HCPCS: 36415; 76801; 84702; 85025; 99284

== ENCOUNTER → 2025-04-22 07:56 | Outpatient (BNVA) | payer MEDICAID, SELFPAY | PROVIDERS: Family Provider Obstetrics & Gynecology; Visit Provider Nurse Practitioner Women's Health | DX: N92.6 Irregular menstruation, unspecified (principal) | CPT/HCPCS: 81025 ==